=== PATIENT | male | born 1950 | race Caucasian/White ===

== ENCOUNTER → 2018-01-18 | Day surgery (SDC) | payer MEDICARE, BC ==
[~2018-01-18] MED LIST: Lactated Ringers 1,000 ML IV SCH; Propofol 200 MG/20 ML SDV IV ONE
[2018-01-18 09:16] VITALS: BP 112/72
--- NOTE | 2018-01-18 13:16 | OR ---
DATE OF OPERATION: 01/18/2018 PREOPERATIVE DIAGNOSIS: FOLLOW UP POLYPS. POSTOPERATIVE DIAGNOSIS: FOLLOW UP POLYPS. SURGEON: Markel Trujillo MD PROCEDURE: FULL-LENGTH COLONOSCOPY WITH POLYP REMOVAL X2. SURGEON: Markel Trujillo M.D. ANESTHESIA: OVERHEAD [employer] due to coronary artery disease. COMPLICATIONS: None. SPECIMEN: Two small sessile polyps. FINDINGS: 1. Full-length colonoscopy. 2. Cameron diverticulosis mild. 3. Two small sessile polyps, less than 0.5 cm. RECOMMENDATIONS: Follow up colonoscopy in 5 years. INDICATIONS: The patient had a history of colonoscopy with polyp removal. He is due for a 5-year followup. DESCRIPTION OF PROCEDURE: The patient was prepped and draped, placed in the left lateral decubitus position. A lubricated Olympus colonoscope was inserted and easily advanced to the cecum. Direct visualization of the ileocecal valve and appendiceal orifice was accomplished. The bowel prep was fine. Upon withdrawal of the scope, the cecum and ascending colon were benign. Just past the hepatic flexure, the patient had a small hyperplastic polyp, flat and sessile in the proximal transverse colon, removed in its entirety with 2 cold forceps biopsies. The rest of the transverse and descending colons were benign. The patient does have scattered diverticula throughout the length of the colon starting over near the hepatic flexure, very mild in severity even in the sigmoid, but present throughout the colon. The sigmoid colon had another small sessile polyp around 40 cm removed in its entirety with forceps as well. No other polyps, lesions, masses, or vascular abnormalities were seen. The rectosigmoid junction was benign. Retroflexion scope in the rectum showed no perianal lesions. The rectal vault was benign. Air was suctioned and scope was removed without complication. MALGORZATA/DELL /[id number]
== END ==
LOC: CC.SDS 07:40
PROVIDERS: ATTEND Family Medicine
DX: Z12.11 Encounter for screening for malignant neoplasm of colon (principal); D12.3 Benign neoplasm of transverse colon; D12.5 Benign neoplasm of sigmoid colon; K57.30 Diverticulosis of large intestine without perforation or abscess without bleeding; I10 Essential (primary) hypertension; I25.10 Atherosclerotic heart disease of native coronary artery without angina pectoris; F17.290 Nicotine dependence, other tobacco product, uncomplicated; I48.91 Unspecified atrial fibrillation; N40.0 Benign prostatic hyperplasia without lower urinary tract symptoms; E78.5 Hyperlipidemia, unspecified; Z86.010 Personal history of colon polyps; Z79.899 Other long term (current) drug therapy; Z91.013 Allergy to seafood; Z91.048 Other nonmedicinal substance allergy status
CPT/HCPCS: 36415; 45380; 85610; J7120; J2704

== ENCOUNTER 2019-04-05 18:39 | Emergency (ER) | payer MEDICARE, BC ==
[2019-04-05] MEDS ORDERED: Cephalexin 500 MG Cap PO ONE (18:40)
--- NOTE | 2019-04-05 18:49 | EDM.PDOC ---
ED HPI GENERAL MEDICAL PROBLEM - General Chief Complaint: General Stated Complaint: fall off mower Time Seen by Provider: 04/05/19 18:40 Source of Information: Reports: Patient, Family History Limitations: Reports: No Limitations - History of Present Illness INITIAL COMMENTS - FREE TEXT/NARRATIVE: in with c/o was getting off the mower and slipped and fell landing on his "face ", no loc. has multiple abrasion/laceration to face, abrasion to upper ext, denies any unusual neck/back pain or stiffness, no change in vision, no ear, sx , abrasion/laceration to nose, no throat sx, no CP or sob, no abd pain, no NV, no lower ext pain, no hip or pelvis pain Onset: Today Duration: Minutes: Location: Reports: Head, Face Quality: Reports: Ache Severity: Moderate Improves with: Reports: None Worsens with: Reports: None Context: Reports: Trauma Associated Symptoms: Denies: Confusion, Chest Pain, Cough, Headaches, Nausea/ Vomiting, Rash, Shortness of Breath, Syncope, Weakness Treatments HOUSE PARENT: Reports: Other (see below) (none) - Related Data Allergies Allergy/AdvReac Type Severity Reaction Status Date / Time iodine Allergy Itching Verified 04/05/19 18:53 shellfish derived Allergy Itching Verified 04/05/19 18:53 Home Meds: Home Meds Albuterol [Ventolin HFA] 2 inh INH Q4H PRN 07/12/15 [History] Ezetimibe/Simvastatin [Vytorin 10-40 mg Tablet] 1 tab PO DAILY 07/12/15 [History ] Cholecalciferol (Vitamin D3) [Vitamin D3] 1,000 unit PO DAILY 10/30/16 [History] Fish Oil/DHA/EPA [Fish Oil 1,200 MG] 1,200 mg PO DAILY 10/30/16 [History] Cetirizine [ZyrTEC] 10 mg PO DAILY 01/15/18 [History] Fluticasone Propionate [Flovent HFA 110 MCG] 2 puff INH BID 01/15/18 [History] Metoprolol Succinate 100 mg PO DAILY 01/15/18 [History] Warfarin Sodium 1 mg PO ASDIRECTED 01/15/18 [History] amLODIPine Besylate [Norvasc] 5 mg PO DAILY 01/18/18 [History] Past Medical History HEENT History: Reports: Sinusitis Cardiovascular History: Reports: CAD, High Cholesterol, Hypertension, Other ( See Below) Other Cardiovascular History: CABG x3 "at least 15 years ago" Respiratory History: Reports: Other (See Below) Other Respiratory History: reactive airway disease Genitourinary History: Reports: BPH, Other (See Below) Other Genitourinary History: nocturia Musculoskeletal History: Reports: Other (See Below) Other Musculoskeletal History: arthralgia Oncologic (Cancer) History: Reports: Malignant Melanoma - Past Surgical History Cardiovascular Surgical History: Reports: Coronary Artery Bypass Musculoskeletal Surgical History: Reports: Shoulder Surgery Social & Family History - Family History Cardiac: Reports: CAD - Tobacco Use Tobacco Use Within Last Twelve Months: Smokeless Tobacco - Alcohol Use Alcohol Use History: Yes Alcohol Use Frequency: Daily ED ROS GENERAL - Review of Systems Review Of Systems: See Below Constitutional: Reports: No Symptoms. Denies: Fever, Chills, Weakness HEENT: Reports: No Symptoms. Denies: Eye Pain, Throat Pain, Vision Change Respiratory: Reports: No Symptoms. Denies: Shortness of Breath Cardiovascular: Reports: No Symptoms. Denies: Chest Pain GI/Abdominal: Reports: No Symptoms. Denies: Abdominal Pain, Nausea, Vomiting : Reports: No Symptoms Musculoskeletal: Denies: Neck Pain, Shoulder Pain, Back Pain, Hand Pain, Foot Pain Skin: Reports: Wound Neurological: Reports: No Symptoms. Denies: Confusion, Dizziness, Headache, Numbness, Paresthesia, Seizure, Syncope, Tingling, Trouble Speaking, Difficulty Walking, Weakness, Change in Speech, Gait Disturbance Psychiatric: Reports: No Symptoms Hematologic/Lymphatic: Reports: No Symptoms ED EXAM, GENERAL - Physical Exam Exam: See Below Exam Limited By: No Limitations General Appearance: Alert, WD/WN, No Apparent Distress Eye Exam: Bilateral Eye: EOMI, PERRL Ears: Normal External Exam, Normal Canal, Hearing Grossly Normal, Normal TMs Ear Exam: Bilateral Ear: Auricle Normal, Canal Normal, TM normal Nose: Normal Mucosa. No: Normal Inspection Throat/Mouth: Normal Inspection, Normal Lips, Normal Oropharynx, Normal Voice, No Airway Compromise Head: Normocephalic. No: Atraumatic Neck: Normal Inspection, Supple, Non-Tender, Full Range of Motion Respiratory/Chest: No Respiratory Distress, Lungs Clear, Normal Breath Sounds Cardiovascular: Normal Peripheral Pulses, Regular Rate, Rhythm Peripheral Pulses: 2+: Radial (L), Radial (R) ED GENERAL MEDICAL PROCEDURES - Laceration/Wound Repair Upper Other Lac/wound length in cm: 3 Appearance: Subcutaneous Distal NVT: Neuro & Vascular Intact Anesthetic Type: Local Local Anesthesia - Lidocaine (Xylocaine): 2% with EPI Local Anesthetic Volume: 3cc Skin Prep: Saline Exploration/Debridement/Repair: Wound Explored, In a Bloodless Field Closed with: Sutures Suture Size: 6-0 # of Sutures: 4 Suture Type: Nylon Sterile Dressing Applied: Nurse Tetanus Status Addressed: Yes Complications: No Progress/Comments: laceration #2 1cm right upper lip, 2% lido with epi 2ml, 6.0 nylon # 2 sutures, wound cleaned to a bloodless field with NS before sutures, pt tolerated procedure well Course - Vital Signs Text/Narrative:: pt evaluated in the ED, CT head, cervical spine, and face obtained and read by the radiologist as neg for acute pathology, see the readings for details, the pt has two laceration to the right upper lip that were repaired, see the procedure note for details, the other abrasion cleaned with NS and Neosporin applied, pt given Keflex 500mg TID x 7 days, will f/u with pcp on Sunday for recheck Last Recorded V/S: Last Vital Signs Temp 36.1 C 04/05/19 18:41 Pulse 65 04/05/19 18:41 Resp 18 04/05/19 18:41 BP 137/88 04/05/19 18:41 Pulse Ox 96 04/05/19 18:41 - Orders/Labs/Meds Orders: Active Orders 24 hr Category Date Time Status Vaccines to be Administered [RC] PER UNIT ROUTINE Care 04/05/19 18:50 Active Cervical Spine wo Cont [CT] Stat Exams 04/05/19 18:42 Taken Head wo Cont [CT] Stat Exams 04/05/19 18:42 Taken Max Facial Sinus wo Cont [CT] Stat Exams 04/05/19 18:42 Taken Labs: Laboratory Tests 04/05/19 Range/Units 18:42 PT 21.5 H (9.7-12.3) SEC INR 2.18 H (0.92-1.18) Meds: Medications Discontinued Medications Generic Name Dose Route Start Last Admin Trade Name Freq PRN Reason Stop Dose Admin Diphtheria/Tetanus/Acell Pertussis 0.5 ml 04/05/19 18:50 04/05/19 19:26 Adacel IM 04/05/19 18:51 0.5 ml .ONCE ONE Administration Lidocaine/Epinephrine 20 ml 04/05/19 20:07 Xylocaine 2% With Epinephrine 1:100,000 INJECT 04/05/19 20:08 ONETIME ONE Departure - Departure Time of Disposition: 20:42 Disposition: Home, Self-Care 01 Condition: Good Clinical Impression: Fall, Multiple abrasions, Laceration of upper lip, complicated, Closed head injury - Discharge Information *PRESCRIPTION DRUG MONITORING PROGRAM REVIEWED*: Not Applicable *COPY OF PRESCRIPTION DRUG MONITORING REPORT IN PATIENT ELISA: Not Applicable Instructions: Head Injury, Adult, Gadx-of-Usxw, Facial Laceration, Wound Care, Adult, Sutured Wound Care Forms: ED Department Discharge Additional Instructions: follow head injury instructions as well as other instructions keep wounds clean and dry apply a thin coat of neosporin to wound 3 x a day keflex 500mg 3 x a day for 7 days follow up with the family doctor on Sunday for a recheck - Problem List & Annotations (1) Closed head injury SNOMED Code(s): 192261856987 Code(s): S09.90XA - UNSPECIFIED INJURY OF HEAD, INITIAL ENCOUNTER Status: Acute Priority: High Current Visit: Yes Qualifiers: Encounter type: initial encounter Qualified Code(s): S09.90XA - Unspecified injury of head, initial encounter (2) Fall SNOMED Code(s): 2022065, 614392559 Code(s): W19.XXXA - UNSPECIFIED FALL, INITIAL ENCOUNTER Status: Acute Priority: High Current Visit: Yes Qualifiers: Encounter type: initial encounter Qualified Code(s): W19.XXXA - Unspecified fall, initial encounter (3) Laceration of upper lip, complicated SNOMED Code(s): 348510045, 968098053 Code(s): S01.511A - LACERATION WITHOUT FOREIGN BODY OF LIP, INITIAL ENCOUNTER Status: Acute Priority: High Current Visit: Yes Qualifiers: Encounter type: initial encounter Qualified Code(s): S01.511A - Laceration without foreign body of lip, initial encounter (4) Multiple abrasions SNOMED Code(s): 030511672, 920991325 Code(s): T07.XXXA - UNSPECIFIED MULTIPLE INJURIES, INITIAL ENCOUNTER Status : Acute Priority: High Current Visit: Yes - Problem List Review Problem List Initiated/Reviewed/Updated: Yes - My Orders Last 24 Hours: My Active Orders 04/05/19 18:42 Cervical Spine wo Cont [CT] Stat Head wo Cont [CT] Stat Max Facial Sinus wo Cont [CT] Stat 04/05/19 18:50 Vaccines to be Administered [RC] PER UNIT ROUTINE - Assessment/Plan Last 24 Hours: My Active Orders 04/05/19 18:42 Cervical Spine wo Cont [CT] Stat Head wo Cont [CT] Stat Max Facial Sinus wo Cont [CT] Stat 04/05/19 18:50 Vaccines to be Administered [RC] PER UNIT ROUTINE Plan: see above
[2019-04-05] MEDS ORDERED: Diphtheria,Pertussis(Acell),Tetanus Vaccine 0.5 ML Syringe IM ONE (18:50)
[2019-04-05 18:52] VITALS: BP 137/88; PULSE 65
[2019-04-05] MEDS ORDERED: Lidocaine 2% with EPINEPHrine 1:100,000 20 ML MDV INJECT ONE (20:07)
[2019-04-05] MEDS ORDERED: Bacitracin/Neomycin/Polymyxin B Oint 0.9 GM U/D Packet ONE (20:39)
[2019-04-05] MEDS ORDERED: Take Home: Cephalexin 500 MG Cap, 4 Cap Pack PO ONE (20:45)
[2019-04-05] MEDS ORDERED: Bacitracin/Neomycin/Polymyxin B Oint 28.4 GM Tube TOP ONE (20:54)
== END 2019-04-05 21:03 | disposition home or self-care (01) ==
LOC: CC.ED 18:39
DX: S01.511A Laceration without foreign body of lip, initial encounter (principal); S09.90XA Unspecified injury of head, initial encounter; S00.31XA Abrasion of nose, initial encounter; S40.819A Abrasion of unspecified upper arm, initial encounter; I10 Essential (primary) hypertension; Z23 Encounter for immunization; Z95.1 Presence of aortocoronary bypass graft; Z79.01 Long term (current) use of anticoagulants; Z79.899 Other long term (current) drug therapy; Z91.013 Allergy to seafood; Z91.048 Other nonmedicinal substance allergy status; W28.XXXA Contact with powered lawn mower, initial encounter
CPT/HCPCS: 12013; 36415; 70450; 70486; 72125; 85610; 90471; 90715; 99284; A9270; 90472